=== PATIENT | male | born 1935 | race Caucasian/White ===

== ENCOUNTER 2018-12-02 16:19 | Inpatient (IN) | payer OTHER ==
--- NOTE | 2018-12-02 16:24 | PDOC ---
Rapid Medical Evaluation Time Seen by Provider: 12/02/18 16:21 Medical Evaluation: 12/02/18 16:21 HPI:Fall at son's home last week, AMS x1 day PE: In wheelchair and talkative not making sense ORDERS: CT head, basic labs and urine Discharge Disposition - Diagnosis Altered mental state - Referrals - Patient Instructions - Post Discharge Activity
--- NOTE | 2018-12-02 16:49 | PDOC ---
History of Present Illness - General Chief Complaint: Altered Mental Status Stated Complaint: FALL/CONFUSION Time Seen by Provider: 12/02/18 16:21 History Source: Family - History of Present Illness Initial Comments: 12/02/18 17:14 Mr. Gallardo is an 83 y/o man with hx prior strokes x2 (2007), HTN, HLD, seizures, p/w one day of altered mental status with worsening confusion, urinary incontinence. He is accompanied by his son and a close family friend. They report that one week ago he had a witnessed fall at home when he reached forward to grab something on a shelf and fell forward. They report that he stayed with his son one day after the fall, and found that he had urinary incontinence repeatedly at that time. He denies any LOC, seizure-like activity, head injury at that time. Mr. Gallardo's family is concerned that he has had more difficulty recognizing them since yesterday. He had two prior strokes in 2007 with mild residual L sided weakness. He denies any fevers, chills, fatigue , night sweats, headache. Of note, he was mumbling incoherently throughout the interview. His son reports that he has an increasing concern about his father's ability to live by himself at home. He reports that his father has flatly refused to name anyone as his power of service dismantler or his medical decision maker, and they are not sure what they can do to help him as a result. They report that he has had multiple falls at home, and that he previously lived with his . His has hx parkinsons, dementia and was recently admitted to a rehab facility for the management of a complicated UTI. He is concerned that now that he is alone, his father will not report any injuries that occur at home (as his was normally the one who kept track of their medical care before her condition deteriorated). Past History - Past Medical History Allergies/Adverse Reactions: Allergies Allergy/AdvReac Type Severity Reaction Status Date / Time No Known Allergies Allergy Verified 12/02/18 16:26 Home Medications: Ambulatory Orders Chlorthalidone 25 mg PO 12/02/18 Keppra 500 mg PO DAILY 12/02/18 Lisinopril [Prinivil -] 40 mg PO DAILY 12/02/18 Metoprolol Tartrate [Lopressor] 50 mg PO 12/02/18 Mirtazapine 15 mg PO 12/02/18 Phenytoin 50 mg PO 12/02/18 Simvastatin 40 mg PO 12/02/18 CVA: Yes (2, LEFTSIDED WEAKNESS) COPD: No HTN: Yes Seizures: Yes Other medical history: DEMENTIA - Psycho Social/Smoking Cessation Hx Smoking History: Former smoker Have you smoked in the past 12 months: No If you are a former smoker, when did you quit?: 11 YEARS AGO Information on smoking cessation initiated: No Review of Systems - Review of Systems Able to Perform ROS?: Yes Comments:: 12/02/18 18:05 ROS: GENERAL/CONSTITUTIONAL: No fever or chills. No weakness. HEAD, EYES, EARS, NOSE AND THROAT: No change in vision. No ear pain or discharge. No sore throat. CARDIOVASCULAR: No chest pain or shortness of breath RESPIRATORY: No cough, wheezing, or hemoptysis. GASTROINTESTINAL: No nausea, vomiting, diarrhea or constipation. GENITOURINARY: Urinary incontinence. No dysuria, frequency, or other change in urination. MUSCULOSKELETAL: No joint or muscle swelling or pain. No neck or back pain. SKIN: No rash NEUROLOGIC: Fall one week ago. No headache, vertigo, loss of consciousness, or change in strength/sensation. ENDOCRINE: No increased thirst. No abnormal weight change HEMATOLOGIC/LYMPHATIC: No anemia, easy bleeding, or history of blood clots. ALLERGIC/IMMUNOLOGIC: No hives or skin allergy. *Physical Exam - Vital Signs Last Vital Signs Temp Pulse Resp BP Pulse Ox 98.6 F 96 H 18 132/75 94 L 12/02/18 16:21 12/02/18 16:21 12/02/18 16:21 12/02/18 16:21 12/02/18 16:21 - Physical Exam Comments: 12/02/18 18:07 PE: GENERAL: Awake, alert, flat affect, in no acute distress HEAD: No signs of trauma, normocephalic, atraumatic EYES: PERRLA, EOMI, sclera anicteric, conjunctiva clear ENT: Auricles normal inspection, hearing grossly normal, nares patent, oropharynx clear without exudates. Moist mucosa NECK: Normal ROM, supple, no lymphadenopathy, JVD, or masses LUNGS: No distress, speaks full sentences, clear to auscultation bilaterally HEART: Regular rate and rhythm, normal S1 and S2, no murmurs, rubs or gallops, peripheral pulses normal and equal bilaterally. ABDOMEN: Soft, nontender, normoactive bowel sounds. No guarding, no rebound. No masses EXTREMITIES : Normal inspection, Normal range of motion, no edema. No clubbing or cyanosis NEUROLOGICAL: Normal speech, no focal sensorimotor deficits SKIN: Warm, Dry, normal turgor, no rashes or lesions noted Heart Score/ECG Review - ECG Intrepretation Rhythm: Regular Rhythm - Wilcox Wilcox: Normal - P and NM Delta Wave(s) Present: No WPW: No - ST and T Early Repolarization: No Non Specific ST-T Wave changes: No - ECG Impressions Normal ECG: Yes Non-specific ST Elevation: No Ischemic Changes: No Bradycardia: No ED Treatment Course - LABORATORY CBC & Chemistry Diagram: 12/02/18 16:42 12/02/18 16:42 Medical Decision Making - Medical Decision Making 12/02/18 18:09 83M with hx prior strokes, seizures, HTN, HLD, DM, p/w fall one week ago, ongoing urinary incontinence, and one day of disorientation to persons. Differential includes delirium secondary to urinary infection, worsening dementia, other infectious source, subdural bleed vs head injury due to fall. Of note, he refuses to name a power of service dismantler or a healthcare proxy and lives alone - family concerned that he is not safe to take care of himself alone at home. Plan: CBC CMP UA Urine culture CXR EKG Cardiac profile Head CT non-contrast, Neck CT Dispo: Likely admit pending labs, imaging 12/02/18 18:36 CT Head/Neck negative for acute process CXR negative for acute process. BUN:Cr >20, likely pre-renal 12/02/18 18:48 On reassessment, Mr. Gallardo reports that he wants to leave the hospital. Discussed lab findings thus far, importance of IV access and fluids, as well as hospital admissions. He states that he refuses, but is unable to repeat back why we would like to obtain IV access or the possible consequences of not administering fluids and possible results of leaving home in his current condition. Plan for IV access, 1L IV NS. UA negative --- Plan for inpatient admission Discharge - Discharge Information Problems reviewed: Yes Clinical Impression/Diagnosis: Altered mental state Qualifiers: Altered mental status type: unspecified Qualified Code(s): R41.82 - Altered mental status, unspecified Condition: Stable - Follow up/Referral Referrals: Thanh Blanco [Primary Care Provider] - - Patient Discharge Instructions - Post Discharge Activity
[2018-12-02 17:02] LABS: BASO % 0.8 % (0-2.0); EOS % 0.9 % (0-4.5); HEMATOCRIT 35.7 % (35.4-49); HEMOGLOBIN 11.8 GM/dL (11.7-16.9); LYMPH % 11.7 % (8-40); MCH 30.8 pg (25.7-33.7); MEAN CELL VOLUME 93.4 fl (80-96); MONO % 9.2 % (3.8-10.2); NEUT % 77.4 % (42.8-82.8); PLATELET COUNT 297 K/MM3 (134-434); RBC 3.82 M/mm3 (4.00-5.60); RDW 14.6 % (11.9-15.9); WHITE BLOOD COUNT 10.2 K/mm3 (4.0-10.0)
[2018-12-02 17:17] LABS: INR 1.1 (0.83-1.09)
[2018-12-02 17:38] LABS: ALBUMIN 3.4 g/dl (3.4-5.0); ALK PHOS 119 U/L (45-117); ANION GAP 8 MMOL/L (8-16); BILIRUBIN,TOTAL 0.4 mg/dL (0.2-1); BLOOD UREA NITROGEN 41.6 mg/dL (7-18); CALCIUM 8.6 mg/dL (8.5-10.1); CHLORIDE 109 mmol/L (98-107); CO2 27 mmol/L (21-32); CREATININE 1.9 mg/dL (0.55-1.3); GLUCOSE,RANDOM 106 mg/dL (74-106); POTASSIUM 3.8 mmol/L (3.5-5.1); SGOT/AST 23 U/L (15-37); SGPT/ALT 14 U/L (13-61); SODIUM 143 mmol/L (136-145); TOT PROT 8.4 g/dl (6.4-8.2)
[2018-12-02] MEDS ORDERED: SODIUM CHLORIDE 0.9% 500 ML INFUS.BAG IV ONE (18:51)
[2018-12-02 19:13] LABS: EPI CELLS 3.9 /HPF (0-5/HPF); HYALINE CASTS 24 /lpf (0-8); URINE APPEARANCE CLOUDY; URINE BACTERIA 1.9 /hpf (NEGATIVE); URINE BILIRUBIN NEGATIVE (NEGATIVE); URINE COLOR YELLOW; URINE GLUCOSE (UA) NEGATIVE (NEGATIVE); URINE KETONE NEGATIVE (NEGATIVE); URINE LEUK ESTERASE NEGATIVE (NEGATIVE); URINE NITRITE NEGATIVE (NEGATIVE); URINE PROTEIN 1+ (NEGATIVE); URINE RBC 1 /hpf (0-4); URINE WBC 1 /hpf (0-5)
--- NOTE | 2018-12-02 20:18 | PN ---
Teaching Attending Note Name of Resident: Luiz Arredondo ATTENDING PHYSICIAN STATEMENT I saw and evaluated the patient. I reviewed the resident's note and discussed the case with the resident. I agree with the resident's findings and plan as documented. SUBJECTIVE: Patient is an 83 year old man with a PMH of CVA x2 (2007), HTN, HLD, Left leg DVT and Seizures, who presents to the ER for 1 day of altered mental status with worsening confusion and urinary incontinence. Patient is unable to provide accurate information. Family reports that 1 week ago he had a witnessed fall at home while trying to grab something on a shelf. Patient denies any LOC or seizure-like activity. They report that he stayed with his son one day after the fall, and they found that he had urinary incontinence repeatedly at that time. The family is concerned that he has had more difficulty recognizing them since yesterday. He had two prior strokes in 2007 with mild residual left sided weakness. He denies any fevers, chills, fatigue, night sweats or headache. Also denies chest pain, shortness of breath, dizziness, cough, nausea, vomiting, diarrhea, dysuria or hematuria. He was mumbling incoherently throughout the interview. His son reports that he has an increasing concern about his father's ability to live by himself at home. He reports that his father has flatly refused to name anyone as his power of game programmer or his medical decision maker, and they are not sure what they can do to help him as a result. Has family history of prostate cancer. They report that he has had multiple falls at home, and that he previously lived with his . His has Parkinsons, and dementia and was recently admitted to a Rehab facility for the management of a complicated UTI. He is concerned that now that he is alone, his father will not report any injuries that occur at home. OBJECTIVE: Alert Vital Signs Period Temp Pulse Resp BP Sys/Esposito Pulse Ox Last 24 Hr 98.6 F-99.6 F 82-96 18-20 132-147/75-87 94-100 HEENT: No Jaundice, eye redness or discharge, PERRLA, EOMI. Normocephalic, atraumatic. External ears are normal and hearing is grossly intact. No nasal discharge. Neck: Supple, nontender. No palpable adenopathy or thyromegaly. No JVD Chest: Good effort. Clear to auscultation and percussion. Heart: Regular. No S3, rub or murmur Abdomen: Not distended, soft, nontender and no HSM. No rebound or guarding. Normal bowel sounds. Ext: Peripheral pulses intact. No leg edema. Skin: Warm and dry. No petechiae, rash or ecchymosis. Neuro: Alert. Oriented x3. CN 2-12 grossly intact. Sensation grossly intact in all four extremities; left side hemiparesis. Psych: Appropriate mood and affect. Good insight. Current Medications Generic Name Dose Route Start Last Admin Trade Name Freq PRN Reason Stop Dose Admin Atorvastatin Calcium 20 mg 12/03/18 22:00 Lipitor - PO HS [facility] Heparin Sodium (Porcine) 5,000 unit 12/03/18 06:00 Heparin - SQ TID ALEE Sodium Chloride 1,000 mls @ 42 mls/hr 12/03/18 00:45 12/03/18 01:04 1/2 Normal Saline IV 12/04/18 00:34 42 mls/hr ASDIR ALEE Administration Metoprolol Tartrate 50 mg 12/03/18 00:41 12/03/18 01:04 Lopressor - PO 50 mg DAILY ALEE Administration Mirtazapine 15 mg 12/03/18 22:00 Remeron - PO HS [facility] Non-Formulary Medication 500 mg 12/03/18 02:01 Keppra PO BID [facility] Phenytoin Sodium 200 mg 12/03/18 10:00 Dilantin Chewable Tablet - PO DAILY ALEE Phenytoin Sodium 100 mg 12/03/18 22:00 Dilantin Chewable Tablet - PO HS [facility] Home Medications Medication Instructions Recorded Chlorthalidone 25 mg PO 12/02/18 Keppra 500 mg PO BID 12/02/18 Lisinopril [Prinivil -] 40 mg PO DAILY 12/02/18 Metoprolol Tartrate [Lopressor] 50 mg PO 12/02/18 Mirtazapine 15 mg PO 12/02/18 Phenytoin 50 mg PO 12/02/18 Simvastatin 40 mg PO 12/02/18 Abnormal Lab Results 12/02/18 12/02/18 12/02/18 16:42 16:42 16:42 WBC 10.2 H RBC 3.82 L INR 1.10 H Chloride 109 H BUN 41.6 H Creatinine 1.9 H Alkaline Phosphatase 119 H Total Protein 8.4 H Urine Protein 12/02/18 19:00 WBC RBC INR Chloride BUN Creatinine Alkaline Phosphatase Total Protein Urine Protein 1+ H ASSESSMENT AND PLAN: 1. AMS and JADEN - Etiolgy of AMS and falls unclear. May have new onset dementia/ gait abnormality or hypertensive encephalopathy. Noncontrast CT scan of head and C-spine showed right middle cerebral artery territorial chronic infarct; multilevel degenerative disc disease with prominent anterior bridging osteophytes. CXR showed chronic left rib fractures. EKG shows NSR with nonspecific t wave flattening. Will get brain MRI, consult Neurology/Psychiatry and PT, get ECHO and most important consult social media manager to liaise with his family about his home situation - unsafe to be left alone. Implement fall precautions. Will continue comprehensive care for all of patients comorbid conditions. 2. CKD? - Has risk factor for CKD and may also have superimposed dehydration. Will hold lisinoprlil and chlorthalidone, get kidney sonogram, PTH, CPK and phosphate. Hydrate gently. Consult nephrology and avoid nephrotoxic agents such as NSAIDS, aminoglycosides, contrast dyes and certain Alternative medicine products. 3. Uncontrolled Hypertension - Will practice permissive hypertension for now. Restart suitable outpatient antihypertensive drugs when clinically appropriate. Revise regimen to ensure [id number] excellent BP control and primary substance abuse counselor patient on the injurious effects of uncontrolled hypertension. Nonpharmacologic measures to control hypertension like weight loss, salt restriction and exercise discussed. Importance of adherence to treatment regimen and attainment of normotension emphasized. 4. DVT prophylaxis - Heparin 5000u sq tid. 5. Advance directives - Full code.
--- NOTE | 2018-12-02 20:38 | PDOC ---
Documentation entered by Carlitos Guy SCRIBE, acting as scribe for Nader Woody MD. Nader Woody MD: This documentation has been prepared by the Brooks galindo Xhesika, SCRIBE, under my direction and personally reviewed by me in its entirety. I confirm that the documentation accurately reflects all work, treatment, procedures, and medical decision making performed by me. Attending Attestation - Resident Resident Name: Jerome Alvarez - ED Attending Attestation I have performed the following: I have examined & evaluated the patient, The case was reviewed & discussed with the resident, I agree w/resident's findings & plan, Exceptions are as noted - HPI HPI: 12/02/18 18:35 The patient is a 83 year old male, with a significant PMH of prior strokes x2 ( 2007), HTN, HLD, seizures, who presents to the emergency department for 1 day of altered mental status with worsening confusion, urinary incontinence. Patient is a poor historian however, family reports that 1 week ago he had a witnessed fall at home while trying to grab something on a shelf. Patient denies any LOC or seizure-like activity. The patient denies chest pain, shortness of breath, headache and dizziness. Denies fever, chills, cough, nausea, vomiting, diarrhea and constipation. Denies dysuria and hematuria. Allergies: NKDA PCP: Thanh Taylor - Physicial Exam PE: 12/02/18 20:34 Patient is awake and alert, well-nourished, in no distress Normocephalic, atraumatic Right pupil is opaque; EOMI mm-dry No carotid bruits CTA RRR Abdomen is soft, nontender, nondistended No lower extremity edema bilaterally Awake and alert, oriented to self, place, month and day of the week; + left hemiparesis (known to be old - Medical Decision Making 12/02/18 20:36 83-year-old male with multiple comorbidities, history of left hemiparesis ( Xavier dependent) presents with increased weakness, worsening ability to perform ADLs, unwitnessed fall 1 week previously and decreased mentation. In the ER, patient is afebrile, nontoxic appearing. Mucous membranes are noted to be extremely dry. CBC is within normal limit. CMP reveals elevated BUN/ creatinine consistent with prerenal azotemia. Urinalysis reveals no evidence of pyuria. Will hydrate. Will admit to inpatient for hydration and social work eval.
[2018-12-03] MEDS ORDERED: METOPROLOL TARTRATE 50 MG TABLET (FP) PO SCH (00:41)
[2018-12-03] MEDS ORDERED: SODIUM CHLORIDE 0.45% 1,000 ML IV SCH (00:45)
[2018-12-03] MEDS ORDERED: METOPROLOL TARTRATE 50 MG TABLET (FP) ONE (00:53)
--- NOTE | 2018-12-03 01:01 | HP ---
CHIEF COMPLAINT: PCP: HISTORY OF PRESENT ILLNESS: 83 y/o/m with PMHx of CVAx2 (2007), HTn, HLD, seizures here for AMS for 4 days. Patient had an unwitnessed fall 1 week ago. Patient's son found the patient on the floor at his house in a pool of urine. Patient is unsure how long he was down for but denies hitting his head at that time or losing consciousness. Patient states he urinated because he was not able to get up to go to the bathroom. Patient normally ambulates with a walker and has residual left sided weakness after his strokes in 2007. Patient's son then brought the patient to stay at his house. Patient had a second witnessed fall 5 days ago with no injury or LOC. As of 4 days ago patient became confused as per the son. He has been refusing his medications intermittently and acting out of character. Patient's son is concerned as the patient is now living by himself after his was admitted to a [facility] in October due to a complicated UTI and prior to her admission in the fci she took care of both herself and the patient. Patient had 2 episodes of urinating on himself in the last week, unclear where the patient had incontinence or was unable to make it to the bathroom in time. Patient denies all symptoms. ER course was notable for: (1) Bolus of NS given Recent Travel: none PAST MEDICAL HISTORY: CVA x2, HTN, HLD, seizures PAST SURGICAL HISTORY: denies Social History: Smoking: quit smoking in the 1960s Alcohol: quit drinking in 2008 Drugs: denies Allergies No Known Allergies Allergy (Verified 12/02/18 16:26) HOME MEDICATIONS: Home Medications Medication Instructions Recorded Chlorthalidone 25 mg PO 12/02/18 Keppra 500 mg PO DAILY 12/02/18 Lisinopril [Prinivil -] 40 mg PO DAILY 12/02/18 Metoprolol Tartrate [Lopressor] 50 mg PO 12/02/18 Mirtazapine 15 mg PO 12/02/18 Phenytoin 50 mg PO 12/02/18 Simvastatin 40 mg PO 12/02/18 REVIEW OF SYSTEMS CONSTITUTIONAL: Absent: fever, chills, diaphoresis, generalized weakness, malaise, loss of appetite, weight change HEENT: Absent: rhinorrhea, nasal congestion, throat pain, throat swelling, difficulty swallowing, mouth swelling, ear pain, eye pain, visual changes CARDIOVASCULAR: Absent: chest pain, syncope, palpitations, irregular heart rate, lightheadedness , peripheral edema RESPIRATORY: Absent: cough, shortness of breath, dyspnea with exertion, orthopnea, wheezing, stridor, hemoptysis GASTROINTESTINAL: Absent: abdominal pain, abdominal distension, nausea, vomiting, diarrhea, constipation, melena, hematochezia GENITOURINARY: Absent: dysuria, frequency, urgency, hesitancy, hematuria, flank pain, genital pain MUSCULOSKELETAL: Absent: myalgia, arthralgia, joint swelling, back pain, neck pain SKIN: Absent: rash, itching, pallor NEUROLOGIC: falls Absent: headache, focal weakness or paresthesias, dizziness, unsteady gait, seizure, mental status changes, bladder or bowel incontinence PHYSICAL EXAMINATION Vital Signs - 24 hr 12/02/18 12/02/18 12/03/18 16:21 20:00 00:28 Temperature 98.6 F 99.6 F 98.3 F Pulse Rate 96 H Pulse Rate [ 82 84 Apical] Respiratory 18 20 18 Rate Blood Pressure 132/75 Blood Pressure 147/87 167/87 [Left Arm] O2 Sat by Pulse 94 L 100 96 Oximetry (%) GENERAL: Awake, alert, and fully oriented, in no acute distress. HEAD: Normal with no signs of trauma EYES: Pupils equal, round and reactive to light, extraocular movements intact, sclera anicteric, conjunctiva clear. No lid lag. EARS, NOSE, THROAT: Ears normal, nares patent, oropharynx clear without exudates. dry mucous membranes. NECK: Normal range of motion, supple without lymphadenopathy, JVD, or masses. LUNGS: Breath sounds equal, clear to auscultation bilaterally. No wheezes, and no crackles. No accessory muscle use. HEART: Regular rate and rhythm, normal S1 and S2 without murmur, rub or gallop. ABDOMEN: Soft, nontender, not distended, normoactive bowel sounds, no guarding, no rebound, no masses. MUSCULOSKELETAL: atrophy or left upper and lower extremities. good range of motion of left lower extremity. unable to move left upper extremity. No bony deformities or tenderness. No CVA tenderness. UPPER EXTREMITIES: 2+ pulses, warm, well-perfused. No cyanosis. No clubbing. No peripheral edema. LOWER EXTREMITIES: 2+ pulses, warm, well-perfused. No calf tenderness. No peripheral edema. NEUROLOGICAL: Cranial nerves II-XII intact. Normal speech. fully oriented. decreased sensation over left hand. PSYCHIATRIC: Cooperative. Good eye contact. Appropriate mood and affect. SKIN: Warm, dry, decreased turgor, no rashes or lesions noted, normal capillary refill. Laboratory Results - last 24 hr 12/02/18 12/02/18 12/02/18 16:42 16:42 16:42 WBC 10.2 H RBC 3.82 L Hgb 11.8 Hct 35.7 MCV 93.4 MCH 30.8 MCHC 33.0 RDW 14.6 Plt Count 297 MPV 8.0 Absolute Neuts (auto) 7.9 Neutrophils % 77.4 Lymphocytes % 11.7 Monocytes % 9.2 Eosinophils % 0.9 Basophils % 0.8 Nucleated RBC % 0 PT with INR 13.00 INR 1.10 H Sodium 143 Potassium 3.8 Chloride 109 H Carbon Dioxide 27 Anion Gap 8 BUN 41.6 H Creatinine 1.9 H Est GFR (CKD-EPI)AfAm 36.96 Est GFR (CKD-EPI)NonAf 31.89 Random Glucose 106 Calcium 8.6 Total Bilirubin 0.4 AST 23 ALT 14 Alkaline Phosphatase 119 H Creatine Kinase 120 CK-BB (CK-1) CK/CKMB % Calc Troponin I < 0.02 Total Protein 8.4 H Albumin 3.4 Urine Color Urine Appearance Urine pH Ur Specific [place] Urine Protein Urine Glucose (UA) Urine Ketones Urine Blood Urine Nitrite Urine Bilirubin Urine Urobilinogen Ur Leukocyte Esterase Urine WBC (Auto) Urine RBC (Auto) Urine Casts (Auto) U Pathogenic Cast Auto U Epithel Cells (Auto) Urine Bacteria (Auto) Blood Type Antibody Screen 12/02/18 12/02/18 12/02/18 16:42 18:11 19:00 WBC RBC Hgb Hct MCV MCH MCHC RDW Plt Count MPV Absolute Neuts (auto) Neutrophils % Lymphocytes % Monocytes % Eosinophils % Basophils % Nucleated RBC % PT with INR INR Sodium Potassium Chloride Carbon Dioxide Anion Gap BUN Creatinine Est GFR (CKD-EPI)AfAm Est GFR (CKD-EPI)NonAf Random Glucose Calcium Total Bilirubin AST ALT Alkaline Phosphatase Creatine Kinase CK-BB (CK-1) Cancelled CK/CKMB % Calc Cancelled Troponin I Total Protein Albumin Urine Color Yellow Urine Appearance Cloudy Urine pH 5.0 Ur Specific [place] 1.022 Urine Protein 1+ H Urine Glucose (UA) Negative Urine Ketones Negative Urine Blood Negative Urine Nitrite Negative Urine Bilirubin Negative Urine Urobilinogen 1.0 Ur Leukocyte Esterase Negative Urine WBC (Auto) 1 Urine RBC (Auto) 1 Urine Casts (Auto) 24 U Pathogenic Cast Auto 0-8 U Epithel Cells (Auto) 3.9 Urine Bacteria (Auto) 1.9 Blood Type B POSITIVE Antibody Screen Negative ASSESSMENT/PLAN: 83 y/o/m with PMHx of CVAx2 (2007), HTn, HLD, seizures here for AMS for 4 days. 1) Metabolic Encephalopathy - patient with worsening confusion for the last 4 days -Neuro Consult, Dr. Fang -MRI for further evaluation -questionable dementia 2) HTN -Continue Metoprolol -Hold Chlorthalidone and Enalapril in light of patient's elevated kidney function -monitor BP -Echocardiogram to evaluate cardiac function 3) Elevated BUN/Creatinine -likely acute on chronic, patient has proteinuria and risk factors for kidney disease -1/2 NS for rehydration -Renal U/S 4) Seizure disorder -last seizure 1 year ago -continue home meds, Phenytoin 200mg in the morning, 100mg at night and Keppra -Keppra and Phenytoin levels 6) Falls -fall risk precautions -patient is hemiplegic, hx of falls at home 7) FEN -1/2NS @ 42mls/hr 8) Prophylaxis -Heparin 9) Disposition -Admitted to med surg Visit type - Emergency Visit Emergency Visit: Yes ED Registration Date: 12/02/18 Care time: The patient presented to the Emergency Department on the above date and was hospitalized for further evaluation of their emergent condition. - New Patient This patient is new to me today: Yes Date on this admission: 12/02/18 - Critical Care Critical Care patient: No ATTENDING PHYSICIAN STATEMENT I saw and evaluated the patient. I reviewed the resident's note and discussed the case with the resident. I agree with the resident's findings and plan as documented. SUBJECTIVE: OBJECTIVE: ASSESSMENT AND PLAN:
[2018-12-03] MEDS ORDERED: KEPPRA 500 MG PO SCH (02:01)
[2018-12-03] MEDS ORDERED: amLODIPine BESYLATE 5 MG TABLET (FP) PO ONE (02:16)
[2018-12-03] MEDS ORDERED: amLODIPine BESYLATE 5 MG TABLET (FP) ONE (02:28)
[2018-12-03 05:43] VITALS: BMI 19.0
[2018-12-03] MEDS: HEPARIN NA (PORCINE) 5,000 UNITS/ML 1ML VIAL SQ SCH ×3 (06:39→21:26)
[2018-12-03] MEDS ORDERED: PATIENT'S OWN MEDICATION (NON-FORMULARY) (Mirtazapine [Mirtazapine] 15 MG) PO SCH (10:00)
[2018-12-03] MEDS ORDERED: PATIENT'S OWN MEDICATION (NON-FORMULARY) (Simvastatin [Simvastatin] 40 MG) PO SCH (10:00)
[2018-12-03] MEDS ORDERED: PT OWN MED DRAWER 7, Y5N ONE ×2 (10:32→21:10)
[2018-12-03] MEDS: levETIRAcetam 500 MG TABLET (FP) PO SCH ×2 (10:32→21:26)
[2018-12-03] MEDS: PHENYTOIN 50 MG TAB.CHEW PO SCH ×2 (10:33→21:26)
--- NOTE | 2018-12-03 12:21 | ECHO ---
Name: CRONIN, SUE Exam:Adult Echocardiogram Study Date: 12/03/2018 07:26 AM Age: 83 yrs Reason For Study: Cardiac Function Height: 68 in Weight: 129 lb BSA: 1.7 m2 Doppler Measurements & Calculations MV E max yulia: 40.7 cm/sec MV A max yulia: 50.9 cm/sec MV dec slope: 139.8 cm/sec2 MV E/A: 0.80 Ao V2 max: 146.6 cm/sec LV V1 max P.6 mmHg Ao max P.6 mmHg LV V1 max: 80.0 cm/sec Ao V2 mean: 100.1 cm/sec Ao mean P.5 mmHg Ao V2 VTI: 32.4 cm Procedure The study was technically limited with all images being suboptimal in quality. Left Ventricle Left ventricular systolic function is grossly normal. Right Ventricle The right ventricular systolic function is grossly normal. Atria The left atrium is not well visualized. Right atrium not well visualized. Mitral Valve The mitral valve is not well visualized. Tricuspid Valve The tricuspid valve is not well visualized. Aortic Valve The aortic valve is not well visualized. Pulmonic Valve The pulmonic valve is not well visualized. Great Vessels The aortic root is not well visualized. Pericardium/Pleura There is no pericardial effusion. Interpretation Summary The study was technically limited with all images being suboptimal in quality. Left ventricular systolic function is grossly normal. The right ventricular systolic function is grossly normal. Valves not well visualized. MD Sandro Rowley 12/03/2018 12:20 PM
--- NOTE | 2018-12-03 14:08 | EKG ---
Test Reason : Blood Pressure : / mmHG Vent. Rate : 084 BPM Atrial Rate : 084 BPM P-R Int : 164 ms QRS Dur : 084 ms QT Int : 366 ms P-R-T Axes : 069 059 068 degrees QTc Int : 432 ms POOR DATA QUALITY, INTERPRETATION MAY BE ADVERSELY AFFECTED NORMAL SINUS RHYTHM NONSPECIFIC T WAVE ABNORMALITY ABNORMAL ECG NO PREVIOUS ECGS AVAILABLE Confirmed by RAMONA BECERRIL MD ([id number]) on 12/03/2018 2:08:16 PM Referred By: Confirmed By:RAMONA BECERRIL MD
--- NOTE | 2018-12-03 17:00 | PN ---
Teaching Attending Note Name of Resident: Steve Desouza ATTENDING PHYSICIAN STATEMENT I saw and evaluated the patient. I reviewed the resident's note and discussed the case with the resident. I agree with the resident's findings and plan as documented with exceptions below. SUBJECTIVE: Patient seen and examined. Denies any complaints, ox3, unsure why here, states "my son brought me here". No complaints. appropriate responses and able to participate. OBJECTIVE: Vital Signs Period Temp Pulse Resp BP Sys/Esposito Pulse Ox Last 24 Hr 97.4 F-99.6 F 66-84 18-20 134-169/75-87 96-100 Intake & Output 11/30/18 12/01/18 12/02/18 12/03/18 23:59 23:59 23:59 23:59 Intake Total 300 Balance 300 Weight 120 lb 125 lb General: sitting in bed in no acute distress, cachectic male BMI 19 neck: soft, supple Chest: CTAB, no rales or wheezing abdomen:Soft, NT, ND Extremities: no edema Neuro: AAOx3, EOMI, PERRL, power 5/5, sensation intact to light touch, facial symmetry, tongue midline, speech normal Home Medications Medication Instructions Recorded Chlorthalidone 25 mg PO 12/02/18 Keppra 500 mg PO BID 12/02/18 Lisinopril [Prinivil -] 40 mg PO DAILY 12/02/18 Metoprolol Tartrate [Lopressor] 50 mg PO 12/02/18 Mirtazapine 15 mg PO 12/02/18 Phenytoin 50 mg PO 12/02/18 Simvastatin 40 mg PO 12/02/18 Active Medications Atorvastatin Calcium (Lipitor -) 20 mg PO HS [facility] Heparin Sodium (Porcine) (Heparin -) 5,000 unit SQ TID [facility] Last Admin: 12/03/18 14:21 Dose: 5,000 unit Sodium Chloride (1/2 Normal Saline) 1,000 mls @ 42 mls/hr IV ASDIR [facility] Stop: 12/04/18 00:34 Last Admin: 12/03/18 01:04 Dose: 42 mls/hr Levetiracetam (Keppra -) 500 mg PO BID [facility] Last Admin: 12/03/18 10:32 Dose: 500 mg Mirtazapine (Remeron -) 15 mg PO HS [facility] Phenytoin Sodium (Dilantin Chewable Tablet -) 200 mg PO DAILY [facility] Last Admin: 12/03/18 10:33 Dose: 200 mg Phenytoin Sodium (Dilantin Chewable Tablet -) 100 mg PO [facility] Laboratory Results - last 24 hr 12/02/18 12/02/18 12/02/18 16:42 16:42 16:42 WBC 10.2 H RBC 3.82 L Hgb 11.8 Hct 35.7 MCV 93.4 MCH 30.8 MCHC 33.0 RDW 14.6 Plt Count 297 MPV 8.0 Absolute Neuts (auto) 7.9 Neutrophils % 77.4 Lymphocytes % 11.7 Monocytes % 9.2 Eosinophils % 0.9 Basophils % 0.8 Nucleated RBC % 0 PT with INR 13.00 INR 1.10 H Sodium 143 Potassium 3.8 Chloride 109 H Carbon Dioxide 27 Anion Gap 8 BUN 41.6 H Creatinine 1.9 H Est GFR (CKD-EPI)AfAm 36.96 Est GFR (CKD-EPI)NonAf 31.89 Random Glucose 106 Calcium 8.6 Total Bilirubin 0.4 AST 23 ALT 14 Alkaline Phosphatase 119 H Creatine Kinase 120 CK-BB (CK-1) CK/CKMB % Calc Troponin I < 0.02 Total Protein 8.4 H Albumin 3.4 Urine Color Urine Appearance Urine pH Ur Specific Funk Urine Protein Urine Glucose (UA) Urine Ketones Urine Blood Urine Nitrite Urine Bilirubin Urine Urobilinogen Ur Leukocyte Esterase Urine WBC (Auto) Urine RBC (Auto) Urine Casts (Auto) U Pathogenic Cast Auto U Epithel Cells (Auto) Urine Bacteria (Auto) Blood Type Antibody Screen 12/02/18 12/02/18 12/02/18 16:42 18:11 19:00 WBC RBC Hgb Hct MCV MCH MCHC RDW Plt Count MPV Absolute Neuts (auto) Neutrophils % Lymphocytes % Monocytes % Eosinophils % Basophils % Nucleated RBC % PT with INR INR Sodium Potassium Chloride Carbon Dioxide Anion Gap BUN Creatinine Est GFR (CKD-EPI)AfAm Est GFR (CKD-EPI)NonAf Random Glucose Calcium Total Bilirubin AST ALT Alkaline Phosphatase Creatine Kinase CK-BB (CK-1) Cancelled CK/CKMB % Calc Cancelled Troponin I Total Protein Albumin Urine Color Yellow Urine Appearance Cloudy Urine pH 5.0 Ur Specific Funk 1.022 Urine Protein 1+ H Urine Glucose (UA) Negative Urine Ketones Negative Urine Blood Negative Urine Nitrite Negative Urine Bilirubin Negative Urine Urobilinogen 1.0 Ur Leukocyte Esterase Negative Urine WBC (Auto) 1 Urine RBC (Auto) 1 Urine Casts (Auto) 24 U Pathogenic Cast Auto 0-8 U Epithel Cells (Auto) 3.9 Urine Bacteria (Auto) 1.9 Blood Type B POSITIVE Antibody Screen Negative Microbiology 12/02/18 16:42 Blood - Peripheral Venous Blood Culture - Preliminary NO GROWTH OBTAINED AFTER 24 HOURS, INCUBATION TO CONTINUE FOR 4 DAYS. 12/02/18 16:42 Blood - Peripheral Venous Blood Culture - Preliminary NO GROWTH OBTAINED AFTER 24 HOURS, INCUBATION TO CONTINUE FOR 4 DAYS. ASSESSMENT AND PLAN: 83 yom with PMHx of CVAx2 (2007), HTn, HLD, seizures admitted with recurrent falls and reported AMS. -recurrent falls -Reported AMS, less likely CVA or seizure -h/o CVA x 2 -HTN -HLD -Seizure disorder Plan: Patient Ox3, neurological exam nonconcerning. patient able to recollect events from yesterday, denies any confusion episode, states 'son wanted to bring me here'. Infection screen neg, CT brain neg for concerns. Seizure precautions. Continue keppra/phenytoin. Neurology input. Hold off on additional imaging stable exam and do not suspect neurological event on presentation. Resume toprol. Hold lisinopril/chlorthalidone. Check urine studies. Renal/bladder US noted. Monitor renal function. Retrieve prior Cr from PCP. DVTPPX heparin PT eval Dc in 24 hours if no new concerns and disposition arranged.
[2018-12-03] MEDS: ATORVASTATIN CA 20 MG TABLET (FP) PO SCH (21:26)
[2018-12-03] MEDS: MIRTAZAPINE 15 MG TABLET (FP) PO SCH (21:26)
--- NOTE | 2018-12-03 22:12 | PN ---
Progress Note (short form) - Note Progress Note: HPI: Pt alert and oriented x3. He has no complaints and does not know why he is here. PE: Vital Signs Temperature 98.0 F 12/03/18 18:00 Pulse Rate 69 12/03/18 18:21 Respiratory Rate 20 12/03/18 18:21 Blood Pressure 137/66 12/03/18 18:21 O2 Sat by Pulse Oximetry (%) 97 12/03/18 10:30 Gen: NAd, awake, alert, oriented x3 and able to tell me about prior medical care , cachectic HEENT: Nc/AT, EOMI, DAYANA, sclera anicteric, bitemporal wasting noted, ?mild proptosis, [id number] mucosa Neck: No JVD Lungs: CTA b/l no wheezes or rales no accessory muscle use CARDS: RRR no murmurs ABD: Soft, NT/ND normoactive BS, no suprapubic fullness BACK: No CVA tenderness EXT: Thin, no edema, warm, 2+ pulses b/l Skin: No rashes noted CBC, BMP 12/02/18 16:42 12/02/18 16:42 Active Medications Atorvastatin Calcium (Lipitor -) 20 mg PO HS [facility] Last Admin: 12/03/18 21:26 Dose: 20 mg Heparin Sodium (Porcine) (Heparin -) 5,000 unit SQ TID [facility] Last Admin: 12/03/18 21:26 Dose: 5,000 unit Sodium Chloride (1/2 Normal Saline) 1,000 mls @ 42 mls/hr IV ASDIR [facility] Stop: 12/04/18 00:34 Last Admin: 12/03/18 01:04 Dose: 42 mls/hr Levetiracetam (Keppra -) 500 mg PO BID [facility] Last Admin: 12/03/18 21:26 Dose: 500 mg Metoprolol Succinate (Toprol Xl -) 50 mg PO DAILY [facility] Last Admin: 12/03/18 18:23 Dose: 50 mg Mirtazapine (Remeron -) 15 mg PO HS [facility] Last Admin: 12/03/18 21:26 Dose: 15 mg Phenytoin Sodium (Dilantin Chewable Tablet -) 200 mg PO DAILY [facility] Last Admin: 12/03/18 10:33 Dose: 200 mg Phenytoin Sodium (Dilantin Chewable Tablet -) 100 mg PO HS [facility] Last Admin: 12/03/18 21:26 Dose: 100 mg A/P AMS (now resolved) JADEN vs. CKD Recurrent falls Hx of CVA with L residual deficits Underweight HTN HLD Seizure disorder --doubt seizure given quick recovery of mental status --Doubt recurrent CVA given head imaging negative with no deficits on PE --Potentially dehydration related given Cr 1.9 with dry mucosa --IVF hydration with recheck of Cr --Urine studies ordered: UCr, Lizz --Renal/Bladder US reviewed: no obstructive process and normal sized prostate with no residual void volumes --Continue Remeron 15mg PO HS --Continue Phenytoin 200mg qdaily and 100mg HS PO --Keppra 500mg BID PO to continue --continue Lipitor 20mg PO HS --Holding ACEi given acute kidney injury --PT order given recurrent falls FEN: Fluids: 1/2NS @ 42cc/hr Electrolyte abnormalities: HyperCl (hydration) Nutrition PPX: DVT - Heparin TID given renal abnormalities Dispo: Can d/c in 24hrs if no arising concerns and renal function is improved; PT Case discussed with Dr. Yolie Desouza, DO - IM PGY-3
--- NOTE | 2018-12-03 23:46 | CON.NEURO ---
Consult Consult Specialty:: NEUROLOGY-GEOVANI OVERTON - History of Present Illness History of Present Illness: 83 y/o/m with PMHx of CVAx2 (2007), HTn, HLD, seizures here for AMS for 4 days. Patient had an unwitnessed fall 1 week ago. Patient's son found the patient on the floor at his house in a pool of urine. Patient is unsure how long he was down for but denies hitting his head at that time or losing consciousness. Patient states he urinated because he was not able to get up to go to the bathroom. Patient normally ambulates with a walker and has residual left sided weakness after his strokes in 2007. Patient's son then brought the patient to stay at his house. Patient had a second witnessed fall 5 days ago with no injury or LOC. As of 4 days ago patient became confused as per the son. He has been refusing his medications intermittently and acting out of character. Patient's son is concerned as the patient is now living by himself after his was admitted to a senior living in October due to a complicated UTI and prior to her admission in the senior living she took care of both herself and the patient. Patient had 2 episodes of urinating on himself in the last week, unclear where the patient had incontinence or was unable to make it to the bathroom in time. Patient denies all symptoms. Unable to relate hx.Gives "yes/no answers but fluent speech. - Smoking History Smoking history: Former smoker Have you smoked in the past 12 months: No If you are a former smoker, when did you quit?: 11 YEARS AGO Home Medications - Allergies Allergies/Adverse Reactions: Allergies Allergy/AdvReac Type Severity Reaction Status Date / Time No Known Allergies Allergy Verified 12/02/18 16:26 - Home Medications Home Medications: Ambulatory Orders Chlorthalidone 25 mg PO DAILY 12/02/18 Keppra 500 mg PO BID 12/02/18 Lisinopril [Prinivil -] 40 mg PO DAILY 12/02/18 Simvastatin 40 mg PO DAILY 12/02/18 Mirtazapine 15 mg PO HS 12/03/18 Phenytoin Sodium Extended 100 mg PO ASDIR 12/03/18 Physical Exam-Neuro Vital Signs: Vital Signs Temperature 98.4 F 12/03/18 21:26 Pulse Rate 72 12/03/18 21:26 Respiratory Rate 20 12/03/18 21:26 Blood Pressure 117/65 12/03/18 21:26 O2 Sat by Pulse Oximetry (%) 97 12/03/18 10:30 Labs: CBC, BMP 12/02/18 16:42 12/02/18 16:42 INR, PTT INR 1.10 (0.83-1.09) H 12/02/18 16:42 - Neuro Exam Level Of Consciousness: Yes: Alert, Oriented to Person Eyes: Yes: PERRL Speech: Other (sparse, tangential) Mini Mental Exam: impaired memory/att/conc.follows 1 step commands Cranial Nerves II-XII Intact: No (old left cent. facial) DTR's: 1+ Right Achilles, 2+ Right Bicep, 2+ Left Tricep, 2+ Right Tricep, 2+ Right Brachioradialis, 2+ Left Achilles, 3+ Left Bicep, 3+ Left Brachioradialis Babinski: Present (left) Response to light touch: Normal Response to pain prick: Normal Motor Strength: 2/5: Left Arm, 3/5: Left Leg, 4/5: Right Arm, Right Leg Gait: Deferred Imaging - Results Cat Scan: Report Reviewed (Old right MCA territory infarct) Assessment/Plan Pt. with ?? dementia, s/p rt MCA infarct, sz.now with breakthru sz?? triggered by inf/metabolic.abn causing AMS in addition. Suggest:check DPH level, increase Keppra to 750mg bid, cont. DPH at current dose. Correct metabolic abn.He likely has underlying dementia but given delirium its diffiucult to assess. Thank you, Bryson Matute MD
[2018-12-04] MEDS: HEPARIN NA (PORCINE) 5,000 UNITS/ML 1ML VIAL SQ SCH ×3 (06:43→21:01)
[2018-12-04] MEDS ORDERED: PT OWN MED DRAWER 7, Y5N ONE ×2 (09:35→20:58)
[2018-12-04] MEDS: levETIRAcetam 500 MG TABLET (FP) PO SCH (09:38)
[2018-12-04] MEDS: PHENYTOIN 50 MG TAB.CHEW PO SCH ×2 (11:33→21:00)
[2018-12-04 11:36] LABS: ALBUMIN 2.8 g/dl (3.4-5.0); BILIRUBIN,TOTAL 0.2 mg/dL (0.2-1); BLOOD UREA NITROGEN 35.8 mg/dL (7-18); CALCIUM 8.2 mg/dL (8.5-10.1); CREATININE 1.5 mg/dL (0.55-1.3); POTASSIUM 4.7 mmol/L (3.5-5.1); TOT PROT 7.4 g/dl (6.4-8.2)
--- NOTE | 2018-12-04 14:18 | PN ---
Physical Exam: SUBJECTIVE: Patient seen and examined, no complaints, eating well. OBJECTIVE: Vital Signs Period Temp Pulse Resp BP Sys/Esposito Pulse Ox Last 24 Hr 97.5 F-98.5 F 58-72 18-20 116-144/65-79 97 Intake & Output 12/01/18 12/02/18 12/03/18 12/04/18 23:59 23:59 23:59 23:59 Intake Total 910 1120 Balance 910 1120 Weight 120 lb 125 lb Laboratory Results - last 24 hr 12/04/18 12/04/18 07:45 07:45 Sodium 141 Potassium 4.7 Chloride 111 H Carbon Dioxide 20 L Anion Gap 10 BUN 35.8 H Creatinine 1.5 H Est GFR (CKD-EPI)AfAm 49.19 Est GFR (CKD-EPI)NonAf 42.44 Random Glucose 107 H Calcium 8.2 L Total Bilirubin 0.2 AST 32 ALT 19 Alkaline Phosphatase 105 Total Protein 7.4 Albumin 2.8 L TSH 1.24 Phenytoin 14.4 Active Medications Generic Name Dose Route Start Last Admin Trade Name Jemalq PRN Reason Stop Dose Admin Atorvastatin Calcium 20 mg 12/03/18 22:00 12/03/18 21:26 Lipitor - PO 20 mg HS [facility] Administration Heparin Sodium (Porcine) 5,000 unit 12/03/18 06:00 12/04/18 06:43 Heparin - SQ 5,000 unit TID [facility] Administration Levetiracetam 500 mg 12/03/18 10:00 12/04/18 09:38 Keppra - PO 500 mg BID [facility] Administration Metoprolol Succinate 50 mg 12/03/18 17:15 12/04/18 09:38 Toprol Xl - PO 50 mg DAILY [facility] Administration Mirtazapine 15 mg 12/03/18 22:00 12/03/18 21:26 Remeron - PO 15 mg HS [facility] Administration Phenytoin Sodium 200 mg 12/03/18 10:00 12/04/18 11:33 Dilantin Chewable Tablet - PO 200 mg DAILY [facility] Administration Phenytoin Sodium 100 mg 12/03/18 22:00 12/03/18 21:26 Dilantin Chewable Tablet - PO 100 mg HS [facility] Administration ASSESSMENT/PLAN: 83 yom with PMHx of CVAx2 (2007), HTn, HLD, seizures admitted with recurrent falls and reported AMS. -Recurrent falls -Reported AMS, less likely CVA or seizure -JADEN, suspect hypovolumia, r/o underlying CKD -h/o CVA x 2 -HTN -HLD -Seizure disorder Plan: Clinically stable. Neurology input noted Increase keppra to 750 mg BID. Continue phenytoin at current dose. Seizure precautions. renal function improved, suspect component of hypovolumia. Call placed to Dr. Blanco's office to retrieve prior creatinine. Infection screen neg, CT brain neg for concerns. Hold off on additional imaging stable exam and do not suspect neurological event on presentation. Continue toprol. Hold lisinopril/chlorthalidone. BP stable off meds, would hold on dc. Renal/bladder US noted. Monitor renal function. DVTPPX heparin PT eval noted Plan for SNF in 2 hours as disposition arranged. Discussed with patient and social work. Visit type - Emergency Visit Emergency Visit: Yes ED Registration Date: 12/02/18 Care time: The patient presented to the Emergency Department on the above date and was hospitalized for further evaluation of their emergent condition. - New Patient This patient is new to me today: No - Critical Care Critical Care patient: No - Discharge Referral Referred to [facility] Med P.C.: No
[2018-12-04] MEDS: MIRTAZAPINE 15 MG TABLET (FP) PO SCH (21:00)
[2018-12-04] MEDS: levETIRAcetam 250 MG TABLET (FP) PO SCH (21:00)
[2018-12-04] MEDS: ATORVASTATIN CA 20 MG TABLET (FP) PO SCH (21:00)
[2018-12-05] MEDS: HEPARIN NA (PORCINE) 5,000 UNITS/ML 1ML VIAL SQ SCH ×3 (06:02→21:21)
[2018-12-05] MEDS: levETIRAcetam 250 MG TABLET (FP) PO SCH ×2 (08:48→21:20)
[2018-12-05] MEDS ORDERED: PT OWN MED DRAWER 7, Y5N ONE ×2 (10:40→20:53)
[2018-12-05] MEDS: PHENYTOIN 50 MG TAB.CHEW PO SCH ×2 (10:46→21:21)
--- NOTE | 2018-12-05 10:50 | PN ---
Physical Exam: SUBJECTIVE: Patient seen and examined, no complaints. OBJECTIVE: Vital Signs Period Temp Pulse Resp BP Sys/Esposito Pulse Ox Last 24 Hr 97.8 F-98.3 F 62-69 18-20 120-138/73-76 97 Intake & Output 12/02/18 12/03/18 12/04/18 12/05/18 23:59 23:59 23:59 23:59 Intake Total 910 1850 100 Output Total 100 Balance 910 1850 0 Weight 120 lb 125 lb General: sitting in bed in no acute distress, cachectic male BMI 19 neck: soft, supple Chest: CTAB, no rales or wheezing abdomen:Soft, NT, ND Extremities: no edema Neuro: AAOx3, EOMI, PERRL, power 5/5, sensation intact to light touch, facial symmetry, tongue midline, speech normal Laboratory Results - last 24 hr 12/04/18 07:45 Sodium 141 Potassium 4.7 Chloride 111 H Carbon Dioxide 20 L Anion Gap 10 BUN 35.8 H Creatinine 1.5 H Est GFR (CKD-EPI)AfAm 49.19 Est GFR (CKD-EPI)NonAf 42.44 Random Glucose 107 H Calcium 8.2 L Total Bilirubin 0.2 AST 32 ALT 19 Alkaline Phosphatase 105 Total Protein 7.4 Albumin 2.8 L TSH 1.24 Active Medications Generic Name Dose Route Start Last Admin Trade Name Jemalq PRN Reason Stop Dose Admin Atorvastatin Calcium 20 mg 12/03/18 22:00 12/04/18 21:00 Lipitor - PO 20 mg HS [facility] Administration Heparin Sodium (Porcine) 5,000 unit 12/03/18 06:00 12/05/18 06:02 Heparin - SQ 5,000 unit TID [facility] Administration Levetiracetam 750 mg 12/04/18 20:00 12/05/18 08:48 Keppra - PO 750 mg Q12H [facility] Administration Metoprolol Succinate 50 mg 12/03/18 17:15 12/05/18 10:46 Toprol Xl - PO 50 mg DAILY [facility] Administration Mirtazapine 15 mg 12/03/18 22:00 12/04/18 21:00 Remeron - PO 15 mg HS [facility] Administration Phenytoin Sodium 200 mg 12/03/18 10:00 12/05/18 10:46 Dilantin Chewable Tablet - PO 200 mg DAILY [facility] Administration Phenytoin Sodium 100 mg 12/03/18 22:00 12/04/18 21:00 Dilantin Chewable Tablet - PO 100 mg HS [facility] Administration Microbiology 12/02/18 16:42 Blood - Peripheral Venous Blood Culture - Preliminary NO GROWTH OBTAINED AFTER 48 HOURS, INCUBATION TO CONTINUE FOR 3 DAYS. 12/02/18 16:42 Blood - Peripheral Venous Blood Culture - Preliminary NO GROWTH OBTAINED AFTER 48 HOURS, INCUBATION TO CONTINUE FOR 3 DAYS. 12/02/18 17:30 Urine - Urine Clean Catch Urine Culture - Final Normal Urogenital Oanh ASSESSMENT/PLAN: 83 yom with PMHx of CVAx2 (2007), HTn, HLD, seizures admitted with recurrent falls and reported AMS. 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 Neurology input noted Increased keppra to 750 mg BID. Continue phenytoin at current dose. Phenytoin levels noted. Seizure precautions. Renal function improved. Discussed with Dr. Blanco, baseline Cr 1.5-1.7 ( last Cr 1.5 in 06/2018) Infection screen neg, CT brain neg for concerns. Continue toprol. Hold lisinopril/chlorthalidone. BP stable off meds, would hold on dc. Renal/bladder US noted. Monitor renal function. DVTPPX heparin PT eval noted Plan for SNF when arrangements made. Discussed with patient, nursing and case management. Visit type - Emergency Visit Emergency Visit: Yes ED Registration Date: 12/02/18 Care time: The patient presented to the Emergency Department on the above date and was hospitalized for further evaluation of their emergent condition. - New Patient This patient is new to me today: No - Critical Care Critical Care patient: No - Discharge Referral Referred to [facility] Med P.C.: No
[2018-12-05] MEDS: MIRTAZAPINE 15 MG TABLET (FP) PO SCH (21:20)
[2018-12-05] MEDS: ATORVASTATIN CA 20 MG TABLET (FP) PO SCH (21:23)
[2018-12-06] MEDS ORDERED: CALCIUM CARBONATE 650 MG TABLET PO PRN (00:32)
[2018-12-06] MEDS: HEPARIN NA (PORCINE) 5,000 UNITS/ML 1ML VIAL SQ SCH ×3 (06:29→21:16)
[2018-12-06] MEDS: levETIRAcetam 250 MG TABLET (FP) PO SCH ×2 (08:30→21:15)
[2018-12-06] MEDS ORDERED: PT OWN MED DRAWER 7, Y5N ONE (10:04)
[2018-12-06] MEDS: PHENYTOIN 50 MG TAB.CHEW PO SCH ×2 (10:11→21:15)
--- NOTE | 2018-12-06 11:44 | PN ---
Physical Exam: SUBJECTIVE: Patient seen and examined, no complaints. OBJECTIVE: Vital Signs Period Temp Pulse Resp BP Sys/Esposito Pulse Ox Last 24 Hr 97.8 F-98.6 F 64-72 18-22 113-133/62-79 97 Intake & Output 12/03/18 12/04/18 12/05/18 12/06/18 23:59 23:59 23:59 23:59 Intake Total 910 1850 980 500 Output Total 100 350 Balance 910 1850 880 150 Weight 125 lb General: sitting in bed in no acute distress, cachectic male BMI 19 neck: soft, supple Chest: CTAB, no rales or wheezing abdomen:Soft, NT, ND Extremities: no edema Psych: appropriate, co-oeperative neuro Left hemiparesis Active Medications Generic Name Dose Route Start Last Admin Trade Name Freq PRN Reason Stop Dose Admin Atorvastatin Calcium 20 mg 12/03/18 22:00 12/05/18 21:23 Lipitor - PO 20 mg HS [facility] Administration Calcium Carbonate 650 mg 12/06/18 00:32 12/06/18 00:56 Calcium Carbonate - PO 650 mg ONCE PRN Administration DYSPEPSIA Heparin Sodium (Porcine) 5,000 unit 12/03/18 06:00 12/06/18 06:29 Heparin - SQ 5,000 unit TID [facility] Administration Levetiracetam 750 mg 12/04/18 20:00 12/06/18 08:30 Keppra - PO 750 mg Q12H [facility] Administration Metoprolol Succinate 50 mg 12/03/18 17:15 12/06/18 10:10 Toprol Xl - PO 50 mg DAILY [facility] Administration Mirtazapine 15 mg 12/03/18 22:00 12/05/18 21:20 Remeron - PO 15 mg HS [facility] Administration Phenytoin Sodium 200 mg 12/03/18 10:00 12/06/18 10:11 Dilantin Chewable Tablet - PO 200 mg DAILY [facility] Administration Phenytoin Sodium 100 mg 12/03/18 22:00 12/05/18 21:21 Dilantin Chewable Tablet - PO 100 mg HS [facility] Administration ASSESSMENT/PLAN: 83 yom with PMHx of CVAx2 (2007), HTn, HLD, seizures admitted with recurrent falls and reported AMS. 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 Neurology input noted Increased keppra to 750 mg BID. Continue phenytoin at current dose. Phenytoin levels noted. Seizure precautions. Renal function improved. Discussed with Dr. Blanco, baseline Cr 1.5-1.7 ( last Cr 1.5 in 06/2018) Infection screen neg, CT brain neg for concerns. Continue toprol. Hold lisinopril/chlorthalidone. BP stable off meds, would hold on dc. Renal/bladder US noted. Monitor renal function. DVTPPX heparin PT eval noted Plan for SNF when arrangements made. Discussed with patient, nursing and case management. Visit type - Emergency Visit Emergency Visit: Yes ED Registration Date: 12/02/18 Care time: The patient presented to the Emergency Department on the above date and was hospitalized for further evaluation of their emergent condition. - New Patient This patient is new to me today: No - Critical Care Critical Care patient: No - Discharge Referral Referred to [facility] Med P.C.: No
[2018-12-06] MEDS: ATORVASTATIN CA 20 MG TABLET (FP) PO SCH (21:15)
[2018-12-06] MEDS: MIRTAZAPINE 15 MG TABLET (FP) PO SCH (21:15)
[2018-12-07] MEDS: HEPARIN NA (PORCINE) 5,000 UNITS/ML 1ML VIAL SQ SCH ×3 (06:56→13:14)
[2018-12-07] MEDS ORDERED: INSULIN (NOVOLOG) ASPART 100 UNITS/ML 10ML VIAL ONE (07:44)
[2018-12-07 08:52] VITALS: TEMP 98.1
[2018-12-07] MEDS ORDERED: PT OWN MED DRAWER 7, Y5N ONE (09:02)
[2018-12-07] MEDS: PHENYTOIN 50 MG TAB.CHEW PO SCH (09:50)
[2018-12-07] MEDS: levETIRAcetam 250 MG TABLET (FP) PO SCH (09:50)
[2018-12-07] MEDS ORDERED: amLODIPine BESYLATE 5 MG TABLET (FP) PO SCH (12:00)
--- NOTE | 2018-12-07 12:06 | DS ---
Physical Exam: SUBJECTIVE: Patient seen and examined, no complaints OBJECTIVE: Vital Signs Period Temp Pulse Resp BP Sys/Esposito Pulse Ox Last 24 Hr 98 F-98.4 F 57-65 20-20 128-151/69-79 98-99 PHYSICAL EXAM General: sitting in bed in no acute distress, cachectic male BMI 19 neck: soft, supple Chest: CTAB, no rales or wheezing abdomen:Soft, NT, ND Extremities: no edema Psych: appropriate, co-oeperative neuro Left hemiparesis LABS Laboratory Last Values WBC 10.2 K/mm3 (4.0-10.0) H 12/02/18 16:42 RBC 3.82 M/mm3 (4.00-5.60) L 12/02/18 16:42 Hgb 11.8 GM/dL (11.7-16.9) 12/02/18 16:42 Hct 35.7 % (35.4-49) 12/02/18 16:42 MCV 93.4 fl (80-96) 12/02/18 16:42 MCH 30.8 pg (25.7-33.7) 12/02/18 16:42 MCHC 33.0 g/dl (32.0-35.9) 12/02/18 16:42 RDW 14.6 % (11.9-15.9) 12/02/18 16:42 Plt Count 297 K/MM3 (134-434) 12/02/18 16:42 MPV 8.0 fl (7.5-11.1) 12/02/18 16:42 Absolute Neuts (auto) 7.9 K/mm3 (1.5-8.0) 12/02/18 16:42 Neutrophils % 77.4 % (42.8-82.8) 12/02/18 16:42 Lymphocytes % 11.7 % (8-40) 12/02/18 16:42 Monocytes % 9.2 % (3.8-10.2) 12/02/18 16:42 Eosinophils % 0.9 % (0-4.5) 12/02/18 16:42 Basophils % 0.8 % (0-2.0) 12/02/18 16:42 Nucleated RBC % 0 % (0-0) 12/02/18 16:42 PT with INR 13.00 SEC (9.7-13.0) 12/02/18 16:42 INR 1.10 (0.83-1.09) H 12/02/18 16:42 Sodium 141 mmol/L (136-145) 12/04/18 07:45 Potassium 4.7 mmol/L (3.5-5.1) 12/04/18 07:45 Chloride 111 mmol/L (98-107) H 12/04/18 07:45 Carbon Dioxide 20 mmol/L (21-32) L 12/04/18 07:45 Anion Gap 10 MMOL/L (8-16) 12/04/18 07:45 BUN 35.8 mg/dL (7-18) H 12/04/18 07:45 Creatinine 1.5 mg/dL (0.55-1.3) H 12/04/18 07:45 Est GFR (CKD-EPI)AfAm 49.19 12/04/18 07:45 Est GFR (CKD-EPI)NonAf 42.44 12/04/18 07:45 Random Glucose 107 mg/dL (74-106) H 12/04/18 07:45 Calcium 8.2 mg/dL (8.5-10.1) L 12/04/18 07:45 Total Bilirubin 0.2 mg/dL (0.2-1) 12/04/18 07:45 AST 32 U/L (15-37) 12/04/18 07:45 ALT 19 U/L (13-61) 12/04/18 07:45 Alkaline Phosphatase 105 U/L (45-117) 12/04/18 07:45 Creatine Kinase 120 U/L (26-308) 12/02/18 16:42 CK-BB (CK-1) Cancelled 12/02/18 18:11 CK/CKMB % Calc Cancelled 12/02/18 18:11 Troponin I < 0.02 ng/ml (0.00-0.05) 12/02/18 16:42 Total Protein 7.4 g/dl (6.4-8.2) 12/04/18 07:45 Albumin 2.8 g/dl (3.4-5.0) L 12/04/18 07:45 TSH 1.24 uIU/ml (0.358-3.74) 12/04/18 07:45 Urine Color Yellow 12/02/18 19:00 Urine Appearance Cloudy 12/02/18 19:00 Urine pH 5.0 (5.0-8.0) 12/02/18 19:00 Ur Specific [place] 1.022 (1.010-1.035) 12/02/18 19:00 Urine Protein 1+ (NEGATIVE) H 12/02/18 19:00 Urine Glucose (UA) Negative (NEGATIVE) 12/02/18 19:00 Urine Ketones Negative (NEGATIVE) 12/02/18 19:00 Urine Blood Negative (NEGATIVE) 12/02/18 19:00 Urine Nitrite Negative (NEGATIVE) 12/02/18 19:00 Urine Bilirubin Negative (NEGATIVE) 12/02/18 19:00 Urine Urobilinogen 1.0 mg/dL (0.2-1.0) 12/02/18 19:00 Ur Leukocyte Esterase Negative (NEGATIVE) 12/02/18 19:00 Urine WBC (Auto) 1 /hpf (0-5) 12/02/18 19:00 Urine RBC (Auto) 1 /hpf (0-4) 12/02/18 19:00 Urine Casts (Auto) 24 /lpf (0-8) 12/02/18 19:00 U Pathogenic Cast Auto 0-8 /lpf (NEGATIVE) 12/02/18 19:00 U Epithel Cells (Auto) 3.9 /HPF (0-5/HPF) 12/02/18 19:00 Urine Bacteria (Auto) 1.9 /hpf (NEGATIVE) 12/02/18 19:00 Phenytoin 14.4 12/04/18 07:45 Blood Type B POSITIVE 12/02/18 16:42 Antibody Screen Negative 12/02/18 16:42 CT head/C-spine: CT scan of the head without intravenous contrast No prior is available for comparison. There is diffuse decreased attenuation in the right middle cerebral artery territory with exvacuodilatation of the right lateral ventricle consistent with encephalomalacia/chronic infarct that is involving the right caudate head and basal ganglia. There is moderate atrophy, ventricular dilatation and mild periventricular chronic microvascular ischemic disease changes. No mass lesion, gross acute infarct or intracranial hemorrhage are identified. There is no shift of the midline structures. Visualized paranasal sinuses and mastoid air cells are well aerated. Calcification of the cavernous carotid arteries are present. The calvarium is intact Impression: Right middle cerebral artery territorial chronic infarct/encephalomalacia involving the right caudate head and right basal ganglia with exvacuodilatation of the right lateral ventricle. No gross acute intracranial pathology is identified. Correlate clinically to determine further evaluation and follow-up CT scan of the cervical spine without intravenous contrast Coronal and sagittal reconstruction images were obtained. There is straightening of the cervical spine. No gross fracture, subluxation or prevertebral soft tissue swelling is seen. No jumped facets are identified. Prominent anterior spondylosis at C3-C4 level. Prominent anterior bridging osteophytes from C4 down to C7 level. Moderate to marked degenerative disc disease at C4-C5, C5-C6 and C6-C7 level with mild posterior spur formation and mild bilateral uncovertebral hypertrophy. Visualized portion of the airway appears unremarkable. No gross enlarged lymph nodes are identified. Large calcified plaques at the right common carotid bifurcation/bulb and moderate to large calcified plaques on the left. Lung windows at the thoracic inlet demonstrates minimal subpleural cystic densities/COPD changes in the right lung apex IMPRESSION: The alignment is satisfactory. No gross fracture or subluxation is seen. Multilevel degenerative disc disease with prominent anterior bridging osteophytes, as described above. Large right and slightly smaller left common carotid bifurcation calcified plaques for which correlation with a nonemergent carotid Doppler ultrasound is indicated. Renal/Bladder US: The kidneys are normal in size with the right kidney measuring 8.6 x 4.2 x 4.2 cm and the left kidney measuring 9.3 x 5.0 x 4.9 cm. They are normal in position and texture with no evidence of hydronephrosis or contour deforming renal masses. There is a complex, septated cystic structure within the midpole of the right kidney. This cyst measures 4.2 x 4.1 x 3.1 cm. No vascularity is identified within this cyst on Doppler imaging. Evaluation of the urinary bladder demonstrates no intrinsic bladder abnormalities. Bilateral ureteral jets are visualized. A pre-void bladder volume of 59 cc was calculated. A post voiding image demonstrates complete emptying of the bladder with no significant postvoid residual. The prostate gland is noted significantly enlarged. A total prostate volume of 28.7 cc was calculated. IMPRESSION: 1. Complex, septated right renal cyst with no evidence of hydronephrosis or acute pathology. 2. No significant postvoid residual. Please see above discussion. Microbiology 12/02/18 16:42 Blood - Peripheral Venous Blood Culture - Preliminary NO GROWTH OBTAINED AFTER 96 HOURS, INCUBATION TO CONTINUE FOR 1 DAYS. 12/02/18 16:42 Blood - Peripheral Venous Blood Culture - Preliminary NO GROWTH OBTAINED AFTER 96 HOURS, INCUBATION TO CONTINUE FOR 1 DAYS. 12/02/18 17:30 Urine - Urine Clean Catch Urine Culture - Final Normal Urogenital Oanh HOSPITAL COURSE: Date of Admission:12/02/18 Date of Discharge: 12/07/18 Minutes to complete discharge: 42 Discharge Summary Problems reviewed: Yes Reason For Visit: ACUTE KIDNEY FAILURE/ALTERED MENTAL STATUS Current Active Problems -Recurrent falls -Reported AMS, suspect toxic metabolic encephalopathy from dehydration, less likely CVA or seizure -JADEN, suspect hypovolumia, on CKD stage II-III -h/o CVA x 2 -HTN -HLD -Seizure disorder Hospital Course: 83 yom with PMHx of CVAx2 (2007), HTn, HLD, seizures admitted with recurrent falls and reported AMS. He had trauma work up in the ED that was negative. His AMS was likely from dehydration, less likely CVA or seizure process. He was seen by neurology and his keppra was increased to 750 mg BID. His infection work up was negative. He was noted with creatinine of 1.9 on admission. His lisinopril/Chlorthalidone were held. His creatinine improved to 1.5. Per discussion with PCP Dr. Blanco, patient has known h/o CKD with prior creatinine 1.5-1.7 range. He was continued on his toprol XL and amlodipine was added to his regimen. He will be discharged to SNF in stable condition with outpatient renal function monitoring and PCP/neurology follow up. Condition: Stable - Instructions Diet, Activity, Other Instructions: You were seen here due to your fall. During your stay we found that your kidney numbers were slightly elevated, however we hydrated you and they returned to your normal levels. Due to your falling we recommend you go to rehab to get stronger before going home MEDICATIONS: STOP Lisinopril Chlorthalidone START: Amlodipine 5 mg daily. Change: Your keppra has been increased to 750 mg twice daily Continue dilantin, remeron, toprol XL, simvastatin as before INSTRUCTIONS: All activities with assist and supervision. No driving, operating heavy machinery or being alone on heights/with children/in water. you are started on new BP medication amlodipine. If you notice any new swelling on this medication, please notify your doctor rightaway. FOLLOW UP: Blood work Basic Metabolic panel (BMP) in 1 week at the facility With your primary care doctor in 1 week of discharge from rehab facility With your neurologist or the one who saw you in the hospital (Dr. Matute) in 1-2 weeks If you notice new confusion or any new concerns, please call 911 or come to the ED. Referrals: Thanh Blanco [Primary Care Provider] - Disposition: CUSTODIAL FACILITY - Home Medications Comprehensive Discharge Medication List: Ambulatory Orders Simvastatin 40 mg PO DAILY 12/02/18 Mirtazapine 15 mg PO HS 12/03/18 Phenytoin Sodium Extended 100 mg PO HS 12/03/18 Amlodipine Besylate [Norvasc -] 5 mg PO DAILY tablet 12/07/18 Metoprolol Succinate [Toprol Xl] 50 mg PO DAILY 12/07/18 Phenytoin Sodium Extended 200 mg PO DAILY 12/07/18 levETIRAcetam [Keppra -] 750 mg PO Q12H tablet 12/07/18 This patient is new to me today: No Emergency Visit: Yes ED Registration Date: 12/02/18 Care time: The patient presented to the Emergency Department on the above date and was hospitalized for further evaluation of their emergent condition. Critical Care patient: No - Discharge Referral Referred to [facility] No
[2018-12-07 12:48] VITALS: BP 121/69; PULSE 63
== END 2018-12-07 14:39 | DRG 682 ==
LOC: JER 16:19 → JERBED 19:49 → J5S 12-03 04:18
PROVIDERS: ADMIT Internal Medicine; ATTEND Hospitalist
DX: N17.9 Acute kidney failure, unspecified (principal); G93.41 Metabolic encephalopathy; F03.91 Unspecified dementia, unspecified severity, with behavioral disturbance; I69.354 Hemiplegia and hemiparesis following cerebral infarction affecting left non-dominant side; Z68.1 Body mass index [BMI] 19.9 or less, adult; R64 Cachexia; G40.909 Epilepsy, unspecified, not intractable, without status epilepticus; N18.3 Chronic kidney disease, stage 3 (moderate); R63.6 Underweight; E78.5 Hyperlipidemia, unspecified; E86.0 Dehydration; I12.9 Hypertensive chronic kidney disease with stage 1 through stage 4 chronic kidney disease, or unspecified chronic kidney disease; R41.82 Altered mental status, unspecified
CPT/HCPCS: 36415; 70450-TC; 71045-TC-FY; 72125-TC; 76775-TC; 76856-TC; 80053; 80185; 81003; 82550; 84443; 84484; 85025; 85610; 86850; 86900; 86901; 87040; 87086; 93005; 93010; 93306-TC; 97116-GP; 97162-GP; 99285-25; J1644